=== PATIENT | female | born 1950 | race Hispanic/Latino ===

== ENCOUNTER 2017-05-06 09:39 | Outpatient (CLI) | payer MEDICARE ==
--- NOTE | 2017-05-06 14:36 | Mammography Report ---
BILATERAL DIGITAL SCREENING MAMMOGRAM with CAD: 05/06/17 09:39:00 CLINICAL: Routine screening. COMPARISON:02/06/15 FINDINGS: There are bilateral scattered areas of fibroglandular density.Bilateral benign calcifications. No mass, architectural distortion or suspicious calcifications. IMPRESSION: No mammographic evidence of malignancy. BI-RADS CATEGORY: 2 -- Benign RECOMMENDATION: Routine mammographic screening in one year. COMMENT: Patient follow-up letters are generated by our [employer] application.
== END 2017-05-06 09:40 | disposition home or self-care (01) ==
LOC: SPVWC 09:39
PROVIDERS: ATTEND Internal Medicine
DX: Z12.31 Encounter for screening mammogram for malignant neoplasm of breast (principal)
CPT/HCPCS: 77067; G0202

== ENCOUNTER 2018-02-03 10:06 | Outpatient (CLI) | payer MEDICARE ==
--- NOTE | 2018-02-03 12:45 | Mammography Report ---
RIGHT DIGITAL DIAGNOSTIC MAMMOGRAM with CAD and RIGHT BREAST ULTRASOUND: 02/03/18 CLINICAL: Right palpable axillary lump. COMPARISON:05/06/17 FINDINGS: The breast is mostly fatty with a few scattered residual fibroglandular densities. Scattered benign calcifications.No mass or architectural distortion.The palpable area of interest is in the posterior axilla and is not included on routine mammographic views. A spot view of the area with the palpable marker shows normal fat and no mammographic mass. Ultrasound of the posterior right axilla was performed and demonstrated an oval palpable soft solid relatively smooth mass which is slightly more echogenic than the adjacent fat. The pattern is consistent with a fatty tumor. It measures approximately 3.1 x 1.8 x 4.6 cm. IMPRESSION: 1. Negative mammogram but a 4.6 cm right posterior axillary palpable fatty mass by ultrasound. 2. Although the sonographic morphology is typical of a benign lipoma, consider ultrasound-guided needle core biopsy to exclude a low grade liposarcoma. BI-RADS CATEGORY: 4A--Mildly Suspicious ACR BI-RADS MAMMOGRAPHIC CODES: 0 = Needs additional imaging evaluation; 1 = Negative; 2 = Benign; 3 = Probably benign; 4 = Suspicious; 5 = Malignant; 6 = Known biopsy-proven malignancy COMMENT: 1. Dense breast tissue, i.e., adenosis, fibrocystic changes, etc., may obscure an underlying neoplasm. 2. Approximately 10% of cancers are not detected with mammography. 3. A negative mammography report should not delay biopsy if a clinically suspicious mass is present. COMMENT: Patient follow-up letters are generated by our [employer] application.
== END 2018-02-03 10:07 | disposition home or self-care (01) ==
LOC: SPVWC 10:06
PROVIDERS: ATTEND Internal Medicine
DX: R92.1 Mammographic calcification found on diagnostic imaging of breast (principal)

== ENCOUNTER 2018-02-15 13:08 | Outpatient (CLI) | payer MEDICARE ==
--- NOTE | 2018-02-15 16:59 | Ultrasound Report ---
ULTRASOUND GUIDED NEEDLE CORE BIOPSY OF AN INFERIOR POSTERIOR RIGHT AXILLARY SOFT TISSUE MASS: 02/15/18 CLINICAL: Palpable soft tissue mass in the right posterior axillary line. COMPARISON :02/03/18 FINDINGS: The procedure was explained to the patient and informed consent was obtained. Ultrasound demonstrated the previously described palpable mass. I marked the lesion with a felt tip marker and a time out was called. The skin was prepped with Betadine and anesthetized with 1% lidocaine. Needle core biopsy was performed through a tiny dermatotomy using ultrasound guidance, 2% lidocaine with epinephrine for deep anesthesia and a 18-gauge Achieve biopsy device. 3 cores were obtained and placed in formalin. A clip was deployed within the mass. The patient tolerated the procedure well and there were no apparent complications. Hemostasis was achieved with minimal pressure and a sterile dressing was applied. She left the department in good condition and was given instructions for wound care and followup. IMPRESSION: Uncomplicated ultrasound guided needle core biopsy with clip placement of a posterior right axillary soft tissue mass.
== END 2018-02-15 13:09 | disposition home or self-care (01) ==
LOC: SPVWC 13:08
PROVIDERS: ATTEND Internal Medicine
DX: M79.89 Other specified soft tissue disorders (principal)
CPT/HCPCS: 20206; 88305; A4648

== ENCOUNTER 2018-10-13 10:40 | Outpatient (CLI) | payer MEDICARE ==
--- NOTE | 2018-10-13 12:56 | Mammography Report ---
BILATERAL DIGITAL DIAGNOSTIC MAMMOGRAM with CAD and RIGHT BREAST ULTRASOUND: 10/13/18 10:40:00 CLINICAL: Right breast lump. She had percutaneous biopsy of a posterior right axillary mass 02/15/18. Pathology revealed benign fibrofatty tissue. Routine screening of the left breast. COMPARISON:02/03/18 right mammogram and 05/06/17 bilateral mammogram. FINDINGS: The breasts are mostly fatty with a few bilateral scattered fibroglandular densities. A 4 mm benign oil cyst with eggshell peripheral calcification is identified at the palpable marker and a second more heavily calcified 5 mm oil cyst is approximately 2 cm from the marker. Bilateral scattered benign calcifications. No mass, architectural distortion or suspicious calcifications. Ultrasound of the right breast demonstrated an oval 9 x 6 by 8mm superficial relatively hyperechoic mass with a central 4 mm cyst. This is identified at 1 o'clock 5 cm from the nipple and correlates with the probable marker. An adjacent 5 mm cyst without a hyperechoic component is identified within 1 cm the other smaller cyst. No solid mass or shadowing. IMPRESSION: Benign fat necrosis with a benign 9 mm hyperechoic superficial mass with an associated 4 mm cyst and a second 5 mm oil cyst at 1 o'clock 5 cm from the nipple. BI-RADS CATEGORY: 2 - - Benign RECOMMENDATION: Clinical followup and routine mammographic screening in one year. ACR BI-RADS MAMMOGRAPHIC CODES: 0 = Needs additional imaging evaluation; 1 = Negative; 2 = Benign; 3 = Probably benign; 4 = Suspicious; 5 = Malignant; 6 = Known biopsy-proven malignancy COMMENT: 1. Dense breast tissue, i.e., adenosis, fibrocystic changes, etc., may obscure an underlying neoplasm. 2. Approximately 10% of cancers are not detected with mammography. 3. A negative mammography report should not delay biopsy if a clinically suspicious mass is present. COMMENT: Patient follow-up letters are generated by our [employer] application.
== END 2018-10-13 10:41 | disposition home or self-care (01) ==
LOC: SPVWC 10:40
PROVIDERS: ATTEND Internal Medicine
DX: N64.1 Fat necrosis of breast (principal)
CPT/HCPCS: 77066

== ENCOUNTER 2020-08-06 09:59 | Outpatient (CLI) | payer MEDICARE ==
--- NOTE | 2020-08-07 08:04 | Mammography Report ---
BILATERAL DIGITAL SCREENING MAMMOGRAM WITH CAD HISTORY: SCREENING MAMMO TECHNIQUE: Routine digital mammographic imaging performed. This examination was interpreted with sofia watts benefit of Computer-aided Detection analysis. COMPARISON: 10/13/2018, 02/03/2018, 05/06/2017, 02/06/2015 area FINDINGS: Breast Density: scattered fibroglandular appearance of the breast tissue. Digital CC and MLO views demonstrate no mammographic evidence of malignancy. Scattered benign-appear ing calcifications are noted within both breasts. IMPRESSION: No mammographic evidence of malignancy. If the clinical examination remains stable, recommend bilate ral mammogram in approximately one year. BIRADS 2: Benign Finding(s). FURTHER INFORMATION: According to the [employer], yearly mammograms are recommend ed starting at age 40 and continuing as long as a woman is in good health. Clinical Breast Exams shou ld be part of a periodic health exam-about every 3 years for women in their 20s and 30s and every yea r for women 40 and over. Breast self exam is an option for women starting in their 20s. Any breast ch tai noted on a breast self exam should be reported promptly to the patient's healthcare provider. Br east MRI is recommended for women with an approximately 20-25% or greater lifetime risk of breast can cer, including women with a strong family history of breast or ovarian cancer and women who have been treated for Hodgkin's disease. A negative Mammography report should not discourage follow up or biopsy of a clinically significant f inding and/or abnormality. Dense breast tissue may obscure small neoplasms. The patient will be entered into a reminder system with a target due date for the next screening mamm ogram. Signer Name: Gabriele Stacy MD Signed: 08/07/2020 8:00 AM Workstation Name: [id number]
== END 2020-08-06 10:00 | disposition home or self-care (01) ==
LOC: SPVWC 09:59
PROVIDERS: ATTEND Internal Medicine
DX: Z12.31 Encounter for screening mammogram for malignant neoplasm of breast (principal)
CPT/HCPCS: 77067

== ENCOUNTER 2021-08-13 11:08 | Outpatient (CLI) | payer MEDICARE ==
--- NOTE | 2021-08-14 16:59 | Mammography Report ---
DIGITAL SCREENING MAMMOGRAM WITH CAD, 08/13/2021 CLINICAL INFORMATION / INDICATION: Routine screening TECHNIQUE: Digital bilateral 2D mammography was obtained in the craniocaudal and mediolateral obliqu e projections. This examination was interpreted with the benefit of Computer-Aided Detection analysis . COMPARISON: 08/06/2020 FINDINGS: Breast Density: There are scattered areas of fibroglandular density. No dominant mass, suspicious calcifications, or architectural distortion in either breast. Benign-appearing bilateral calcifications are again seen. IMPRESSION: No mammographic evidence of malignancy. Follow up recommendation: Routine yearly BI-RADS Category 2: Benign. A "normal" or negative report should not discourage follow up or biopsy of a clinically significant f inding. A written summary of these findings will be mailed to the patient. The patient will be entered into a mammography reporting system which will generate a reminder letter for the patient's next appointmen t at the appropriate interval. The [employer] recommends yearly mammograms starting at age 40 and continuing as l eron as a woman is in good health. Breast MRI is recommended for women with an approximate 20-25% or greater lifetime risk of breast cancer, including women with a strong family history of breast or ova laure cancer or who have been treated for Hodgkin's disease. Signer Name: Andrew Pandya MD Signed: 08/14/2021 4:54 PM Workstation Name: [id number]
== END 2021-08-13 11:09 | disposition home or self-care (01) ==
LOC: SPVWC 11:08
PROVIDERS: ATTEND Internal Medicine
DX: Z12.31 Encounter for screening mammogram for malignant neoplasm of breast (principal); N64.89 Other specified disorders of breast
CPT/HCPCS: 77067